=== PATIENT | male | born 1950 | race Two or more races ===

== ENCOUNTER → 2017-03-16 | Outpatient (CLI) | payer OTHER, MEDICAID ==
[2015-12-06 11:24] VITALS: BP 135/79
--- NOTE | 2017-03-16 09:06 | US ---
HISTORY: Right upper quadrant pain, nausea Study: Right upper quadrant abdominal ultrasound Comparison: None Technique: Multiple images of the right upper quadrant were obtained. Findings: The liver is grossly unremarkable in appearance. No definite sonographic evidence of focal discrete hepatic mass is appreciated. The right kidney measures 9.3 x 8.2 x 5.5 cm. An approximate 1.6 x 2.22 cm cyst is noted within the right kidney. No sonographic evidence of hydronephrosis is identified. No shadowing echogenic stones are noted within the gallbladder. The gallbladder wall is thickened me asuring 4.0 mm. The common bile duct is within normal limits in caliber measuring 5.0 mm. The pancre as was not visualized. IMPRESSION: 1. Thickened gallbladder wall without evidence of shadowing echogenic gallstones. 2. Right renal cyst. Reported By:
== END | disposition home or self-care (01) | DRG 392 ==
LOC: RAD 07:55
PROVIDERS: ATTEND Internal Medicine
DX: R10.11 Right upper quadrant pain (principal); N28.1 Cyst of kidney, acquired; K82.8 Other specified diseases of gallbladder
CPT/HCPCS: 76705

== ENCOUNTER → 2017-03-17 | Outpatient (CLI) | payer OTHER, MEDICAID ==
[2015-12-06 11:24] VITALS: BP 135/79
--- NOTE | 2017-03-17 14:25 | NM ---
HISTORY: RUQ pain, nausea. Technique: Multiple scintigraphic images of the abdomen were obtained the intravenous administration of 6.4 mCi of technetium labeled Choletec. Following distention of the gallbladder with radiotracer a bottle of Ensure was given. An estimated gallbladder ejection fraction was calculated based on this physiologic response. Findings: Homogeneous uptake of radiotracer is seen throughout the liver. The intrabiliary ductal system is o bserved normally. The common hepatic and common bile duct grossly appear unremarkable with normal b iliary-bowel transit. The gallbladder is observed to fill normally without evidence for acute rah cystitis. After the administration of ensure, however, an abnormally low gallbladder ejection fracti on of 12% (normal > 35%) is observed. Although many etiologies (certain medications, cholangitis, pa ncreatitis, sepsis, etc.) can account for a low gallbladder ejection fraction, in the outpatient set ting, the most common etiology is chronic cholecystitis. IMPRESSION: 1. Hepatobiliary imaging study demonstrates no evidence for hepatic dysfunction, acute cholecystiti s, or biliary leak/biloma formation. 2. Low gallbladder ejection fraction of 12%, most likely reflecting chronic cholecystitis, as discu ssed above. Reported By:
== END ==
LOC: RAD 10:55
PROVIDERS: ATTEND Internal Medicine
DX: R10.11 Right upper quadrant pain (principal)
CPT/HCPCS: 78227

== ENCOUNTER 2017-04-21 07:32 | Inpatient (IN) | payer OTHER, MEDICAID ==
[~2017-04-21 07:32] MED LIST: ANCEF VIAL 1 GM ONE; NS 100 ML IV 100 ML IV ONE; NS 1000 ML 1,000 ML ONE
[2017-04-21 08:06] LABS: BASOPHILS # (AUTO) 0.1 X10^3/uL (0.0-0.1); BASOPHILS % (AUTO) 1.4 % (0.2-1.0); EOSINOPHILS # (AUTO) 0.3 x10^3/uL (0.0-0.2); EOSINOPHILS % (AUTO) 3.9 % (0.9-2.9); HEMATOCRIT 43.7 % (42.0-54.0); HEMOGLOBIN 15.3 g/dL (13.5-18.0); LYMPHOCYTES # (AUTO) 1.9 X10^3/uL (1.3-2.9); LYMPHOCYTES % (AUTO) 21.6 % (21.0-51.0); MEAN CORPUSCULAR HEMOGLOBIN 28.8 pg (27.0-34.0); MEAN CORPUSCULAR HGB CONC 35.1 g/dL (33.0-35.0); MEAN CORPUSCULAR VOLUME 82.2 fL (80.0-100.0); MEAN PLATELET VOLUME 8.1 fL (7.4-11.0); MONOCYTES # (AUTO) 0.7 x10^3/uL (0.3-0.8); MONOCYTES % (AUTO) 7.9 % (0.0-13.0); NEUTROPHILS # (AUTO) 5.7 x10^3/uL (2.2-4.8); NEUTROPHILS % (AUTO) 65.2 % (42.0-75.0); PLATELET COUNT 267 X10^3/uL (150.0-450.0); RED BLOOD COUNT 5.32 X10^6/uL (4.7-6.0); RED CELL DISTRIBUTION WIDTH 12.9 % (11.6-16.5); WHITE BLOOD COUNT 8.7 X10^3/uL (3.6-10.0)
[2017-04-21] MEDS ORDERED: FENTANYL INJ 250 mcg ONE (08:11)
[2017-04-21 08:16] LABS: ALANINE AMINOTRANSFERASE 32 Units/L (12-78); ALBUMIN 3.5 g/dL (3.4-5.0); ALKALINE PHOSPHATASE 84 Units/L (46-116); ASPARTATE AMINO TRANSFERASE 31 Units/L (15-37); BLOOD UREA NITROGEN 6 mg/dL (7-18); CALCIUM 8.8 mg/dL (8.5-10.1); CARBON DIOXIDE 33.6 mmol/L (21-32); CHLORIDE 103 mmol/L (98-107); COR NA(FOR HYPERGLY) 141 mmol/L (136-145); CREATININE 0.95 mg/dL (0.70-1.30); GLUCOSE 116 mg/dL (65-99); SODIUM 141 mmol/L (136-145); TOTAL PROTEIN 7.7 g/dL (6.4-8.2); eGFR BLACK RACES > 60 (>60); eGFR NON BLACK RACES > 60 (>60)
[2017-04-21] MEDS ORDERED: XYLOCAINE-MPF 1% ONE (08:30)
[2017-04-21] MEDS ORDERED: MARCAINE 0.25% WITH EPI IJ ONE ×2 (08:31→08:32)
--- NOTE | 2017-04-21 10:24 | OR.GENERIC ---
Post-Op Note Generic - Post-Op Note Operative Report: Operative Report Date of Operation: April 21, 2017 Pre-Operative Diagnosis: Chronic cholecystitis. Post-Operative Diagnosis: Chronic cholecystitis. Procedure: Laparoscopic cholecystectomy. Surgeon: Rafael Shepherd MD. Probation Worker: Sonya Steve CRNA. Specimen: Gallbladder. Estimated blood loss: Minimal. Complications: None. Summary: The patient is a 67 year old male who presented with chronic cholecystitis. The patient was offered cholecystectomy. The risk and benefits of the procedure including difficulty with anesthesia, bleeding, infection, conversion to open procedure, bile leak, hernia formation, DVT, as well as PE were discussed with the patient. The patient understood these risks and requested the procedure. On April 21, 2017, the patient was brought to the operative theatre. A time out was performed verifying the patient and procedure. The patient received Ancef for pre-operative antibiosis. After satisfactory induction of general endotracheal anesthesia, the abdomen was prepped with Chloraprep and draped in the usual sterile fashion. The skin and subcutaneous tissue at the umbilicus was anesthetized using local anesthetic. The skin was incised sharply. A 12 mm trocar was placed though the incision and into the peritoneal cavity using the [place] technique. Carbon dioxide was infiltrated through this trocar to obtain a pneumoperitoneum of 15 mm Hg. A camera was placed through this trocar and swept in all directions. No injury was seen from entering the peritoneal cavity. A site was selected in the subxiphoid location for our 2nd trocar. The skin and fascia was anesthetized using local anesthetic. The skin was incised sharply. A 5 mm trocar was placed into the peritoneal cavity under direct visualization. In a similar manner, two additional 5 mm trocars were placed. The first was placed in the mid-clavicular line approximately 2 fingerbreadths inferior to the left costal margin and a second in the anterior axillary line approximately 2 fingerbreadths inferior to the left costal margin. The patient was placed in reverse Trendelenburg and rotated to the patients left. The gallbladder was grasped at the fundus and elevated cephalad and slightly lateral. Omental attachments were taken down using blunt dissection and electrocautery. The peritoneum on the medial and lateral aspects of the infundibulum of the gallbladder was scored using hook electrocautery. Using blunt dissection, the cystic artery and duct were isolated. The critical view of safety was obtained. Both of these structures were divided between endoclips. The gallbladder was dissected free using hook electrocautery. The gallbladder was placed in an endobag and removed through the umbilical trocar site without difficulty. The trocar and camera were placed back inside the abdomen. Our clips were noted in good position. Bleeding of the gallbladder fossa was controlled using electrocautery. At this point, the 5 mm trocars were removed under direct visualization. No bleeding was seen. The umbilical trocar was then removed and pneumoperitoneum released. The fascia at the umbilicus was closed using a 0-Vicryl placed in a figure-of- eight configuration. The skin edges at all incisions were re-approximated using inverted, interrupted 4-0 Monocryl sutures. Benzoin and Steri-strips were placed. Sterile dressings were placed. The patient was awakened and taken to the recovery room in stable condition. There were no complications. All counts were correct.
[2017-04-21] MEDS ORDERED: BENADRYL INJ 50 MG VIAL IVP PRN (10:39)
[2017-04-21] MEDS ORDERED: PHENERGAN INJ 25 MG IVP PRN (10:39)
[2017-04-21] MEDS ORDERED: REGLAN INJ 10 MG VIAL IVP PRN (10:39)
[2017-04-21] MEDS ORDERED: ZOFRAN INJ 4 MG VIAL IVP PRN ×2 (10:39→11:14)
[2017-04-21 11:01] LABS: ABG BASE EXCESS 4.1 mmol/L (-2.0-2.0)
[2017-04-21 11:03] LABS: ABG ALLEN TEST POS; ABG HCO3 33.1 mmol/L (22-26)
[2017-04-21] MEDS ORDERED: TYLENOL SUPP 650 MG PR PRN (11:04)
[2017-04-21] MEDS ORDERED: TYLENOL 325 MG TAB PO PRN (11:04)
[2017-04-21] MEDS ORDERED: DILAUDID INJ ONE (11:06)
--- NOTE | 2017-04-21 11:06 | RAD ---
HISTORY: Low oxygen saturation. Status post surgery/extubation. Study: Single-view chest, done portably Comparison: No priors Findings: Examination is very expiratory with accentuation of the transverse cardiac diameter and bronchovascul ar markings. Right lung is clear. Minimal linear atelectasis is present in the left lung base. No den se consolidation, pleural fluid or pneumothorax is seen. The trachea is midline. There is aortic unco iling. Prominence of the soft tissues in the right paratracheal region is likely on the basis of the AP portable technique with expiratory phase. Osseous structures are intact IMPRESSION: Minimal linear atelectasis present in the left lung base. No dense consolidation is seen. Reported By:
[2017-04-21] MEDS: DILAUDID INJ IVP PRN ×2 (11:07→11:12)
[2017-04-21] MEDS ORDERED: MORPHINE SULFATE INJ 2 MG IVP PRN (11:14)
[2017-04-21] MEDS ORDERED: ZOFRAN INJ 4 MG VIAL ONE ×2 (11:16→16:01)
[2017-04-21 12:07] LABS: CKMB % 1.3 % (<4); CREATINE KINASE 104 Units/L (39-308); CREATINE KINASE MB 1.3 ng/mL (0-4.0); TROPONIN I < 0.02 ng/mL (0-1.5)
[2017-04-21] MEDS: NS 1000 ML 1,000 ML IV SCH ×2 (12:37→23:34)
[2017-04-21] MEDS: MORPHINE SULFATE INJ 2 MG IVP PRN ×2 (12:55→16:46)
[2017-04-21 14:14] VITALS: BMI 37.5
[2017-04-21 14:45] LABS: FRACTIONATED INSPIRED OXYGEN 100
[2017-04-21] MEDS ORDERED: NORCURON INJ 10 MG VIAL ONE (16:01)
[2017-04-21] MEDS ORDERED: XYLOCAINE 1 % (PLAIN) ONE (16:01)
[2017-04-21] MEDS ORDERED: ULTANE GAS IN ONE (16:01)
[2017-04-21] MEDS ORDERED: NEOSTIGMINE INJ ONE (16:01)
[2017-04-21] MEDS ORDERED: DIPRIVAN VIAL ONE (16:01)
[2017-04-21] MEDS ORDERED: NARCAN INJ ONE (16:01)
[2017-04-21] MEDS ORDERED: ROBINUL ONE (16:01)
[2017-04-21] MEDS ORDERED: VERSED ONE (16:01)
[2017-04-21] MEDS ORDERED: NORMODYNE INJ 100 MG VIAL ONE (16:01)
[2017-04-21] MEDS ORDERED: QUELICIN (OR ANECTINE) ONE (16:01)
[2017-04-21] MEDS: HEPARIN SODIUM INJ 5000 UNITS SC SCH ×2 (16:46→23:32)
[2017-04-21 20:22] LABS: CKMB % 1.5 % (<4); CREATINE KINASE 98 Units/L (39-308); CREATINE KINASE MB 1.5 ng/mL (0-4.0); TROPONIN I < 0.02 ng/mL (0-1.5)
[2017-04-21] MEDS: PERCOCET TAB 5/325 MG PO PRN (21:06)
[2017-04-22] MEDS: NS 1000 ML 1,000 ML IV SCH ×2 (02:08→18:02)
[2017-04-22] MEDS: PERCOCET TAB 5/325 MG PO PRN ×3 (05:40→20:43)
[2017-04-22 06:11] LABS: BASOPHILS # (AUTO) 0.1 X10^3/uL (0.0-0.1); BASOPHILS % (AUTO) 0.7 % (0.2-1.0); EOSINOPHILS # (AUTO) 0.1 x10^3/uL (0.0-0.2); EOSINOPHILS % (AUTO) 1.3 % (0.9-2.9); LYMPHOCYTES # (AUTO) 1.2 X10^3/uL (1.3-2.9); LYMPHOCYTES % (AUTO) 10.6 % (21.0-51.0); MEAN CORPUSCULAR HEMOGLOBIN 28.6 pg (27.0-34.0); MEAN CORPUSCULAR VOLUME 84.1 fL (80.0-100.0); MEAN PLATELET VOLUME 8.6 fL (7.4-11.0); MONOCYTES # (AUTO) 0.9 x10^3/uL (0.3-0.8); MONOCYTES % (AUTO) 8.2 % (0.0-13.0); NEUTROPHILS # (AUTO) 8.7 x10^3/uL (2.2-4.8); NEUTROPHILS % (AUTO) 79.2 % (42.0-75.0); PLATELET COUNT 212 X10^3/uL (150.0-450.0); RED BLOOD COUNT 4.88 X10^6/uL (4.7-6.0); RED CELL DISTRIBUTION WIDTH 13.3 % (11.6-16.5)
[2017-04-22 06:25] LABS: ALANINE AMINOTRANSFERASE 46 Units/L (12-78); ALBUMIN 3.1 g/dL (3.4-5.0); ALKALINE PHOSPHATASE 68 Units/L (46-116); ASPARTATE AMINO TRANSFERASE 64 Units/L (15-37); BLOOD UREA NITROGEN 5 mg/dL (7-18); CALCIUM 8.3 mg/dL (8.5-10.1); CARBON DIOXIDE 31.4 mmol/L (21-32); CHLORIDE 105 mmol/L (98-107); COR NA(FOR HYPERGLY) 141 mmol/L (136-145); CREATININE 0.99 mg/dL (0.70-1.30); GLUCOSE 121 mg/dL (65-99); SODIUM 140 mmol/L (136-145); TOTAL PROTEIN 6.9 g/dL (6.4-8.2); eGFR BLACK RACES > 60 (>60); eGFR NON BLACK RACES > 60 (>60)
[2017-04-22 07:06] LABS: ABG BASE EXCESS 7.9 mmol/L (-2.0-2.0)
[2017-04-22 07:09] LABS: ABG HCO3 36.9 mmol/L (22-26)
[2017-04-22 07:10] LABS: ABG ALLEN TEST POS
[2017-04-22] MEDS: APRESOLINE INJ 20 MG VIAL IVP PRN ×2 (07:56→23:11)
[2017-04-22] MEDS: HEPARIN SODIUM INJ 5000 UNITS SC SCH ×3 (07:58→23:11)
[2017-04-22] MEDS: PROTONIX INJ 40 MG VIAL IVP SCH (07:59)
[2017-04-22] MEDS ORDERED: REFLEX: PROVENTIL NEB & PulmiCORT NEB~ NEB SCH (10:15)
[2017-04-22] MEDS: NORVASC TAB 5 MG PO SCH (10:45)
--- NOTE | 2017-04-22 10:54 | PCM.PROG ---
Progress Note - Progress Note for Day of Date: 04/22/17 - Subjective Subjective: WAS IS S/P CHOLECYSTECTOMY YESTERDAY. HIS OXYGEN SATURATIONS FELL INTO THE 70S IN PACU. HE WAS ADMITTED FOR OBSERVATION FOR HYPOXIA. HE IS ALERT AND ORIENTED, LYING IN BED ON MORNING ROUNDS. PATIENT'S FAMILY AT BEDSIDE. PATIENT IS NOTED WEARING BIPAP AT THIS TIME. LUNGS ARE NOTED CLEAR ON AUSCULTATION. HE REPORTS AGITATION WITH WEARING MASK. VITALS THIS AM ARE 99.2-95-20-95%-175/89. CBC WNL EXCEPT WBC 11.0. CMP WNL EXCEPT BUN 5, GLUCOSE 121, CALCIUM 8.3, AST 64, ALBUMIN 3.1. ABG REPORTS PH 7.3, PC02 75, P02 59, HC03 36.9. HE WILL CONTINUE ON BIPAP. WE PLAN TO ORDER A SLEEP STUDY. RESPIRATORY THERAPY WILL ARRANGE FOR THIS. WE WILL ORDER DUONEBS AND PULMICORT NEB TX AND AMLODIPINE 5MG PO DAILY. WE WILL RECHECK AM LABS AND FOLLOW UP WITH PATIENT IN THE MORNING. WILL CONTINUE TO FOLLOW PATIENT FOR POST OP CARE. - Past Medical Family Social History Past Med/Fam/Surg Hx: No changes since H&P Allergies: Allergies MS No Known Drug Allergy [No Known Drug Allergy] Allergy (Verified 01/26/13 08: 08) - Review of Systems ROS: No change since H&P - Vital Signs and I&O's Vital Signs: Temperature 98.7 F Pulse Rate [Apical] 102 Pulse Rate 88 Respiratory Rate 25 Blood Pressure [Right Arm] 166/80 Blood Pressure 179/100 O2 Sat by Pulse Oximetry 90 Intake and Output: Intake & Output 04/19/17 04/20/17 04/21/17 04/22/17 11:59 11:59 11:59 11:59 Intake Total 2473 Balance 2473 - Physical Exam Oriented: Normal Eyes: Normal Ear: Normal Nose: Normal Throat: Normal Respiratory: Normal Cardiovascular: Normal : Normal Auscultation: Bowel Sounds: Normal Palpation: Normal Tenderness: Diffuse (STATUS POST LAP PATIENCE ), Moderate Skin: Normal Musculoskeletal: Normal Psychiatric: Normal Mood Description: Calm Speech Pattern: Clear, Appropriate - Laboratory and Diagnostics Result Diagrams: 04/22/17 05:10 04/22/17 05:10 Labs: Laboratory WBC 11.0 X10^3/uL (3.6-10.0) H 04/22/17 05:10 RBC 4.88 X10^6/uL (4.7-6.0) 04/22/17 05:10 Hgb 14.0 g/dL (13.5-18.0) 04/22/17 05:10 Hct 41.0 % (42.0-54.0) L 04/22/17 05:10 MCV 84.1 fL (80.0-100.0) 04/22/17 05:10 MCH 28.6 pg (27.0-34.0) 04/22/17 05:10 MCHC 34.0 g/dL (33.0-35.0) 04/22/17 05:10 RDW 13.3 % (11.6-16.5) 04/22/17 05:10 Plt Count 212 X10^3/uL (150.0-450.0) 04/22/17 05:10 MPV 8.6 fL (7.4-11.0) 04/22/17 05:10 Neut % 79.2 % (42.0-75.0) H 04/22/17 05:10 Lymph % 10.6 % (21.0-51.0) L 04/22/17 05:10 [place] % 8.2 % (0.0-13.0) 04/22/17 05:10 Eos % 1.3 % (0.9-2.9) 04/22/17 05:10 Baso % 0.7 % (0.2-1.0) 04/22/17 05:10 Neut # 8.7 x10^3/uL (2.2-4.8) H 04/22/17 05:10 Lymph # 1.2 X10^3/uL (1.3-2.9) L 04/22/17 05:10 [place] # 0.9 x10^3/uL (0.3-0.8) H 04/22/17 05:10 Eos # 0.1 x10^3/uL (0.0-0.2) 04/22/17 05:10 Baso # 0.1 X10^3/uL (0.0-0.1) 04/22/17 05:10 Absolute Nucleated RBC 0.1 /100WBC 04/22/17 05:10 Sample Site Rrad 04/22/17 06:55 ABG pH 7.300 (7.35-7.45) L 04/22/17 06:55 ABG pCO2 75.0 mmHg (35.0-45.0) H* 04/22/17 06:55 ABG pO2 59.0 mmHg (80.0-100.0) L 04/22/17 06:55 ABG HCO3 36.9 mmol/L (22-26) H* 04/22/17 06:55 ABG O2 Saturation 87.0 % (90-100) L 04/22/17 06:55 ABG Base Excess 7.9 mmol/L (-2.0-2.0) H 04/22/17 06:55 Julio Test Pos 04/22/17 06:55 A-a Gradient 104.0 mmHg 04/22/17 06:55 FiO2 36.000 04/22/17 06:55 Blood Gas Comments Alicia abg well-mtf 04/22/17 06:55 Sodium 140 mmol/L (136-145) 04/22/17 05:10 Corrected Sodium 141 mmol/L (136-145) 04/22/17 05:10 Potassium 4.1 mmol/L (3.5-5.1) 04/22/17 05:10 Chloride 105 mmol/L (98-107) 04/22/17 05:10 Carbon Dioxide 31.4 mmol/L (21-32) 04/22/17 05:10 BUN 5 mg/dL (7-18) L 04/22/17 05:10 Creatinine 0.99 mg/dL (0.70-1.30) 04/22/17 05:10 Est GFR (MDRD) Af Amer > 60 (>60) 04/22/17 05:10 Est GFR (MDRD) Non-Af > 60 (>60) 04/22/17 05:10 Glucose 121 mg/dL (65-99) H 04/22/17 05:10 Calcium 8.3 mg/dL (8.5-10.1) L 04/22/17 05:10 Corrected Calcium 9.0 mg/dL (8.5-10.1) 04/22/17 05:10 Total Bilirubin 0.50 mg/dL (0.2-1.0) 04/22/17 05:10 AST 64 Units/L (15-37) H 04/22/17 05:10 ALT 46 Units/L (12-78) 04/22/17 05:10 Alkaline Phosphatase 68 Units/L (46-116) 04/22/17 05:10 Creatine Kinase 98 Units/L (39-308) 04/21/17 19:28 CK-MB (CK-2) 1.5 ng/mL (0-4.0) 04/21/17 19:28 CK/CKMB % Calc 1.5 % (<4) 04/21/17 19:28 Troponin I < 0.02 ng/mL (0-1.5) 04/21/17 19:28 Total Protein 6.9 g/dL (6.4-8.2) 04/22/17 05:10 Albumin 3.1 g/dL (3.4-5.0) L 04/22/17 05:10 Globulin 3.8 g/dL (2.5-4.5) 04/22/17 05:10 Albumin/Globulin Ratio 0.8 Ratio (1.1-2.1) L 04/22/17 05:10 Tissue Pathology To follow 04/21/17 10:49 - Plan (1) Hypoxia Status: Acute Plan: BIPAP, DUONEB AND PULMICORT NEB TX, CONTINUE TO MONITOR (2) Hypertension Status: Acute Qualifiers: Hypertension type: unspecified secondary hypertension Qualified Code(s): I15.9 - Secondary hypertension, unspecified Plan: AMLODIPINE 5MG BID, CONTINUE AVAPRO, CONTINUE TO MONITOR (3) Status post laparoscopic cholecystectomy Status: Acute Plan: WOUND CARE, CONTINUE MORPHINE PRN PAIN, CONTINUE PERCOCET PRN PAIN, CONTINUE TO MONITOR FOR S/SX INFECTION
[2017-04-22] MEDS: DUONEB 0.5 MG/3 MG NEB SCH ×4 (11:00→21:25)
[2017-04-22] MEDS: PULMICORT NEB TX 0.5 MG NEB SCH ×2 (11:00→21:25)
[2017-04-22] MEDS: PEPCID TAB 20 MG PO SCH (12:32)
[2017-04-22] MEDS: IRBESARTAN PO SCH ×2 (12:33→20:44)
[2017-04-22] MEDS: FLOMAX PO SCH (20:43)
[2017-04-22] MEDS: MORPHINE SULFATE INJ 2 MG IVP PRN (22:03)
[2017-04-23] MEDS ORDERED: NORCURON INJ 10 MG VIAL ONE (02:06)
[2017-04-23 02:10] LABS: BASOPHILS # (AUTO) 0.1 X10^3/uL (0.0-0.1); EOSINOPHILS # (AUTO) 0.2 x10^3/uL (0.0-0.2); HEMOGLOBIN 14.5 g/dL (13.5-18.0)
[2017-04-23 02:19] LABS: BASOPHILS % (AUTO) 0.7 % (0.2-1.0); HEMATOCRIT 43.5 % (42.0-54.0); LYMPHOCYTES % (AUTO) 11.2 % (21.0-51.0); MEAN CORPUSCULAR HEMOGLOBIN 28.6 pg (27.0-34.0); MEAN CORPUSCULAR HGB CONC 33.4 g/dL (33.0-35.0); MEAN CORPUSCULAR VOLUME 85.5 fL (80.0-100.0); MEAN PLATELET VOLUME 8.4 fL (7.4-11.0); MONOCYTES # (AUTO) 1.3 x10^3/uL (0.3-0.8); MONOCYTES % (AUTO) 6.9 % (0.0-13.0); NEUTROPHILS # (AUTO) 14.4 x10^3/uL (2.2-4.8); NEUTROPHILS % (AUTO) 80.2 % (42.0-75.0); PLATELET COUNT 257 X10^3/uL (150.0-450.0); RED BLOOD COUNT 5.09 X10^6/uL (4.7-6.0); RED CELL DISTRIBUTION WIDTH 13.5 % (11.6-16.5)
[2017-04-23 02:20] LABS: ALANINE AMINOTRANSFERASE 48 Units/L (12-78); ALBUMIN 3.4 g/dL (3.4-5.0); ALKALINE PHOSPHATASE 76 Units/L (46-116); ASPARTATE AMINO TRANSFERASE 51 Units/L (15-37); BLOOD UREA NITROGEN 4 mg/dL (7-18); CALCIUM 8.4 mg/dL (8.5-10.1); CARBON DIOXIDE 39.3 mmol/L (21-32); CHLORIDE 103 mmol/L (98-107); COR NA(FOR HYPERGLY) 142 mmol/L (136-145); GLUCOSE 202 mg/dL (65-99); SODIUM 140 mmol/L (136-145); TOTAL PROTEIN 7.9 g/dL (6.4-8.2); eGFR BLACK RACES > 60 (>60); eGFR NON BLACK RACES > 60 (>60)
[2017-04-23 02:27] LABS: CREATINE KINASE 103 Units/L (39-308); CREATINE KINASE MB < 1.0 ng/mL (0-4.0); TROPONIN I < 0.02 ng/mL (0-1.5)
--- NOTE | 2017-04-23 02:31 | RAD ---
AP Chest Indication:hypoxia, unresponsive Comparison:04/21/2017 Findings: The trachea is midline. The heart size is mildly enlarged, unchanged. There is suboptimal inspiratio n with central vascular crowding and bibasilar subsegmental atelectasis. No dense airspace consolidat ion, large effusion or pneumothorax. No acute osseous abnormality. Impression: Limited evaluation secondary to suboptimal inspiration demonstrates stable mild cardiomeg juan with subsegmental atelectasis and pulmonary vascular crowding, no acute airspace disease, pleural effusion or pneumothorax. Reported By:
[2017-04-23] MEDS ORDERED: SALINE 0.9% 3 ML NEB TX ONE (02:32)
[2017-04-23] MEDS ORDERED: NORCURON INJ 10 MG VIAL IVP ONE (02:32)
--- NOTE | 2017-04-23 02:36 | RAD ---
AP Chest Indication: ET tube placement Comparison: 04/23/2017 at 2:00 a.m. Findings: Upper thorax is excluded from this examination. Endotracheal tube is noted with its tip at the level of the micheal, recommend withdrawal by an approximate least 3 cm with repeat radiographic evaluation for confirmation of placement. No new airspace opacity, pleural effusion or pneumothorax. Impression: See above. The patient's ICU nurse Kalli was informed of endotracheal tube positioning by Dr. Gentile at approx imate 2:35 a.m. Reported By:
[2017-04-23 02:48] LABS: BILIRUBIN,URINE NEGATIVE (NEGATIVE); BLOOD/HEMOGLOBIN,URINE 1+ (NEGATIVE); GLUCOSE, URINE 2+ (NEGATIVE); KETONES,URINE NEGATIVE (NEGATIVE); LEUKOCYTE ESTERASE ,URINE NEGATIVE (NEGATIVE); NITRITES,URINE NEGATIVE (NEGATIVE); PROTEIN,URINE 2+ (NEGATIVE); UROBILINOGEN,URINE NORMAL (NORMAL)
--- NOTE | 2017-04-23 02:52 | RAD ---
AP Chest Indication: Endotracheal tube placement Comparison: radiograph performed earlier on same day Findings: The endotracheal tube now projects approximately 4 cm above the micheal in satisfactory position. No n ew airspace disease pleural effusion or evidence of pneumothorax. IMPRESSION: 1. Satisfactory position of endotracheal tube without pneumothorax or new airspace disease. Reported By:
[2017-04-23 02:58] LABS: AMORPHOUS SEDIMENT,UR 1+ /HPF (NEGATIVE); APPEARANCE,URINE CLEAR (CLEAR); BACTERIA,URINE NEGATIVE /HPF (NEGATIVE); COLOR,URINE YELLOW (YELLOW); RBC,URINE 0-3 /HPF (NEGATIVE); SQUAMOUS EPITHELIAL CELL,UR RARE /HPF (NEGATIVE)
[2017-04-23] MEDS ORDERED: NS 100 ML IV 100 ML IV ONE (03:13)
[2017-04-23] MEDS ORDERED: VERSED ONE (03:14)
[2017-04-23 03:16] LABS: ABG ALLEN TEST POS
[2017-04-23 03:17] LABS: ABG BASE EXCESS 5.8 mmol/L (-2.0-2.0)
[2017-04-23] MEDS: VERSED 100 MG in NS 100 ML IV 80 ML IV PRN ×2 (03:18→13:14)
[2017-04-23 03:19] LABS: ABG ALLEN TEST POS; ABG HCO3 34.4 mmol/L (22-26)
[2017-04-23 04:27] LABS: ABG BASE EXCESS 9.2 mmol/L (-2.0-2.0)
[2017-04-23 04:28] LABS: ABG ALLEN TEST POS; ABG HCO3 32.6 mmol/L (22-26)
[2017-04-23] MEDS: NS 1000 ML 1,000 ML IV SCH ×2 (06:03→21:47)
[2017-04-23] MEDS: APRESOLINE INJ 20 MG VIAL IVP PRN (06:25)
[2017-04-23] MEDS ORDERED: PEPCID 20 MG IV PREMIX* 20 MG/50 ML BAG IV ONE (08:00)
[2017-04-23] MEDS: MORPHINE SULFATE INJ 2 MG IVP PRN ×2 (08:12→21:28)
[2017-04-23] MEDS: HEPARIN SODIUM INJ 5000 UNITS SC SCH ×3 (08:12→23:16)
[2017-04-23] MEDS: PROTONIX INJ 40 MG VIAL IVP SCH (08:14)
[2017-04-23] MEDS: PEPCID 20 MG IV PREMIX* 20 MG/50 ML BAG IV SCH ×2 (08:15→21:17)
[2017-04-23] MEDS: PULMICORT NEB TX 0.5 MG NEB SCH ×2 (08:19→21:55)
[2017-04-23] MEDS: DUONEB 0.5 MG/3 MG NEB SCH ×4 (08:19→21:55)
[2017-04-23] MEDS ORDERED: NS 1000 ML 1,000 ML IV PRN (09:38)
[2017-04-23] MEDS: LEVAQUIN PREMIX IV 750 MG 750 MG/150 ML BAG IV SCH (09:40)
[2017-04-23] MEDS ORDERED: NS 100 ML IV + SPIKE MINIBAG* 100 ML IV ONE ×3 (09:59→21:02)
[2017-04-23] MEDS: TYLENOL SUPP 650 MG PR PRN (10:07)
[2017-04-23] MEDS: ZOSYN VIAL 4.5 GM IV SCH ×3 (10:08→21:17)
[2017-04-23] MEDS: IRBESARTAN PO SCH ×2 (10:08→21:55)
[2017-04-23] MEDS: NORVASC TAB 5 MG PO SCH (10:09)
[2017-04-23] MEDS: PEPCID TAB 20 MG PO SCH (18:40)
--- NOTE | 2017-04-23 21:29 | PCM.PROG ---
Progress Note - Progress Note for Day of Date: 04/23/17 - Subjective Subjective: is a 67 year old male who is status post laproscopic cholecystectomy. During the night, nursing staff noted patients oxygen saturation decreased into the 70s. Patient was stimulated and oxygen saturation increased to the 80s. He remained on the Bi-Pap following that incident. After a brief period of time, patient desated again. This time into the 50s. Patient was noted to be diaphoretic and unresponsive. Patient given Vecuronium 10mg IV x1 and intubated and placed on mechanical vent by . Patients oxygen saturation increased to the 90s after a period of adequate ventilation. Patient started on Versed drip at 5 CC/HR for sedation. ABG obtained at 0152 reported FiO2 100%, pH 7.060, pCO2 115.0, pO2 78.0, HCO3 Not reportable, O2 sat Not reportable, Base Excess Not reportable. ABG obtained @ 0251 reported FiO2 100%, pH 7.300, pCO2 70.0, pO2 132.0, HCO3 34.4, Base Excess 5.8; @0414 FiO2 80%, pH 7.530, pO2 64.0, HCO3 32.6, Base Excess 9.2. Patient was catheterized and urinalysis obtained. Urinalysis reported pH 5.0, Protein 2+ , Glucose 2+, Occult Blood 1+, RBC 0-3, WBC 0-3, Sediment 1+. Sputum Culture is Pending. Sputum Gram Stain reported Gram Neg Cocci Moderate, Gram Pos Cocci Many , Gram Neg Rods Few, WBC Few. First Chest X-Ray taken at 0143 reported Limited evaluation secondary to suboptimal inspiration demonstrates stable mild cardiomegaly with sub-segmental atelectasis and pulmonary vascular crowding, no acute airspace disease, pleural effusion or pneumothorax. Second chest xray taken at 0216 reported Endotracheal tube is noted with its tip at the level of the micheal, recommended withdrawal by an approximate least 3cm with repeat x- ray. Third chest xray taken at 0239 reported Satisfactory position of endotracheal tube without pneumothorax or new airspace disease. On morning rounds, patient remains on mechanical vent. He is currently sedated on a versed drip. Respiratory therapy in room to suction patient. Family is at bedside. Vitals this morning are 98.1-848-75-100%-177/94. Abnormal labs include WBC 18.0 , Carbon Dioxide 39.3, BUN 4, Glucose 202, Calcium 8.4, AST 51, A/G Ratio 0.8. EKG reports sinus tachycardia and left atrial enlargement with a rate of 121. We will start patient on Levaquin 750mg iv daily and Zosyn 4.5 gm iv Q8H. We plan to monitor ABG and chest xray. We will recheck am labs and continue to monitor patient. - Past Medical Family Social History Past Med/Fam/Surg Hx: No changes since H&P Allergies: Allergies No Known Drug Allergies Allergy (Verified 04/22/17 11:08) - Review of Systems ROS: No change since H&P - Vital Signs and I&O's Vital Signs: Temperature 99.9 F Pulse Rate [Apical] 115 Pulse Rate 117 Respiratory Rate 15 Blood Pressure [Right Arm] 166/91 Blood Pressure 179/100 O2 Sat by Pulse Oximetry 93 Intake and Output: Intake & Output 04/21/17 04/22/17 04/23/17 04/24/17 11:59 11:59 11:59 11:59 Intake Total 2473 4278 1031 Output Total 1050 700 Balance 2473 3228 331 - Physical Exam Oriented: Other (sedated ) Eyes: Normal Ear: Normal Nose: Normal Throat: Other (patient is intubated ) Respiratory: Normal Cardiovascular: Tachycardia : Normal Auscultation: Bowel Sounds: Normal Palpation: Normal Tenderness: Diffuse (STATUS POST LAP PATIENCE ) Skin: Normal Musculoskeletal: Normal Psychiatric: Normal, Other (patient is sedated) Mood Description: Calm - Laboratory and Diagnostics Result Diagrams: 04/23/17 01:55 04/23/17 01:55 Labs: 04/23/17 02:33 Sputum - Endotracheal Wash - Final Laboratory WBC 18.0 X10^3/uL (3.6-10.0) H 04/23/17 01:55 RBC 5.09 X10^6/uL (4.7-6.0) 04/23/17 01:55 Hgb 14.5 g/dL (13.5-18.0) 04/23/17 01:55 Hct 43.5 % (42.0-54.0) 04/23/17 01:55 MCV 85.5 fL (80.0-100.0) 04/23/17 01:55 MCH 28.6 pg (27.0-34.0) 04/23/17 01:55 MCHC 33.4 g/dL (33.0-35.0) 04/23/17 01:55 RDW 13.5 % (11.6-16.5) 04/23/17 01:55 Plt Count 257 X10^3/uL (150.0-450.0) 04/23/17 01:55 MPV 8.4 fL (7.4-11.0) 04/23/17 01:55 Neut % 80.2 % (42.0-75.0) H 04/23/17 01:55 Lymph % 11.2 % (21.0-51.0) L 04/23/17 01:55 [place] % 6.9 % (0.0-13.0) 04/23/17 01:55 Eos % 1.0 % (0.9-2.9) 04/23/17 01:55 Baso % 0.7 % (0.2-1.0) 04/23/17 01:55 Neut # 14.4 x10^3/uL (2.2-4.8) H 04/23/17 01:55 Lymph # 2.0 X10^3/uL (1.3-2.9) 04/23/17 01:55 [place] # 1.3 x10^3/uL (0.3-0.8) H 04/23/17 01:55 Eos # 0.2 x10^3/uL (0.0-0.2) 04/23/17 01:55 Baso # 0.1 X10^3/uL (0.0-0.1) 04/23/17 01:55 Absolute Nucleated RBC 0.1 /100WBC 04/23/17 01:55 Sample Site R rad 04/23/17 04:14 ABG pH 7.530 (7.35-7.45) H 04/23/17 04:14 ABG pCO2 39.0 mmHg (35.0-45.0) 04/23/17 04:14 ABG pO2 64.0 mmHg (80.0-100.0) L 04/23/17 04:14 ABG HCO3 32.6 mmol/L (22-26) H* 04/23/17 04:14 ABG O2 Saturation 94.0 % (90-100) 04/23/17 04:14 ABG Base Excess 9.2 mmol/L (-2.0-2.0) H 04/23/17 04:14 Julio Test Pos 04/23/17 04:14 A-a Gradient 458.0 mmHg 04/23/17 04:14 FiO2 80.000 04/23/17 04:14 Blood Gas Comments Alicia well, afh 04/23/17 04:14 Sodium 140 mmol/L (136-145) 04/23/17 01:55 Corrected Sodium 142 mmol/L (136-145) 04/23/17 01:55 Potassium 4.1 mmol/L (3.5-5.1) 04/23/17 01:55 Chloride 103 mmol/L (98-107) 04/23/17 01:55 Carbon Dioxide 39.3 mmol/L (21-32) H 04/23/17 01:55 BUN 4 mg/dL (7-18) L 04/23/17 01:55 Creatinine 0.90 mg/dL (0.70-1.30) 04/23/17 01:55 Est GFR (MDRD) Af Amer > 60 (>60) 04/23/17 01:55 Est GFR (MDRD) Non-Af > 60 (>60) 04/23/17 01:55 Glucose 202 mg/dL (65-99) H 04/23/17 01:55 Calcium 8.4 mg/dL (8.5-10.1) L 04/23/17 01:55 Corrected Calcium TNP 04/23/17 01:55 Total Bilirubin 0.90 mg/dL (0.2-1.0) 04/23/17 01:55 AST 51 Units/L (15-37) H 04/23/17 01:55 ALT 48 Units/L (12-78) 04/23/17 01:55 Alkaline Phosphatase 76 Units/L (46-116) 04/23/17 01:55 Creatine Kinase 103 Units/L (39-308) 04/23/17 01:55 CK-MB (CK-2) < 1.0 ng/mL (0-4.0) 04/23/17 01:55 CK/CKMB % Calc 1.0 % (<4) 04/23/17 01:55 Troponin I < 0.02 ng/mL (0-1.5) 04/23/17 01:55 Total Protein 7.9 g/dL (6.4-8.2) 04/23/17 01:55 Albumin 3.4 g/dL (3.4-5.0) 04/23/17 01:55 Globulin 4.5 g/dL (2.5-4.5) 04/23/17 01:55 Albumin/Globulin Ratio 0.8 Ratio (1.1-2.1) L 04/23/17 01:55 Specimen Type Catherized urine 04/23/17 02:21 Urine Color Yellow (YELLOW) 04/23/17 02:21 Urine Appearance Clear (CLEAR) 04/23/17 02:21 Urine pH 5.0 (5.0 - 8.0) 04/23/17 02:21 Ur Specific [place] 1.020 (1.000-1.030) 04/23/17 02:21 Urine Protein 2+ (NEGATIVE) 04/23/17 02:21 Urine Glucose (UA) 2+ (NEGATIVE) 04/23/17 02:21 Urine Ketones Negative (NEGATIVE) 04/23/17 02:21 Urine Occult Blood 1+ (NEGATIVE) 04/23/17 02:21 Urine Nitrite Negative (NEGATIVE) 04/23/17 02:21 Urine Bilirubin Negative (NEGATIVE) 04/23/17 02:21 Urine Urobilinogen Normal (NORMAL) 04/23/17 02:21 Ur Leukocyte Esterase Negative (NEGATIVE) 04/23/17 02:21 Urine RBC 0-3 /HPF (NEGATIVE) 04/23/17 02:21 Urine WBC 0-3 /HPF (NEGATIVE) 04/23/17 02:21 Ur Squamous Epith Cells Rare /HPF (NEGATIVE) 04/23/17 02:21 Amorphous Sediment 1+ /HPF (NEGATIVE) 04/23/17 02:21 Urine Bacteria Negative /HPF (NEGATIVE) 04/23/17 02:21 Ur Culture Indicated? No/not indicated 04/23/17 02:21 Tissue Pathology To follow 04/21/17 10:49 - Plan (1) Hypoxia Status: Acute Plan: MECHANICAL VENTILATION, DUONEB AND PULMICORT NEB TX, CONTINUE TO MONITOR (2) Hypertension Status: Acute Qualifiers: Hypertension type: unspecified secondary hypertension Qualified Code(s): I15.9 - Secondary hypertension, unspecified Plan: AMLODIPINE 5MG BID, CONTINUE AVAPRO, CONTINUE TO MONITOR (3) Status post laparoscopic cholecystectomy Status: Acute Plan: WOUND CARE, CONTINUE MORPHINE PRN PAIN, CONTINUE PERCOCET PRN PAIN, CONTINUE TO MONITOR FOR S/SX INFECTION
[2017-04-23] MEDS: FLOMAX PO SCH (21:55)
[2017-04-24] MEDS: VERSED 100 MG in NS 100 ML IV 80 ML IV PRN ×2 (01:58→13:34)
[2017-04-24] MEDS ORDERED: NS 100 ML IV + SPIKE MINIBAG* 100 ML IV ONE ×3 (06:13→21:00)
[2017-04-24 06:20] LABS: ALANINE AMINOTRANSFERASE 27 Units/L (12-78); ALBUMIN 2.3 g/dL (3.4-5.0); ALKALINE PHOSPHATASE 51 Units/L (46-116); ASPARTATE AMINO TRANSFERASE 26 Units/L (15-37); BLOOD UREA NITROGEN 9 mg/dL (7-18); CALCIUM 8.3 mg/dL (8.5-10.1); CARBON DIOXIDE 29.7 mmol/L (21-32); CHLORIDE 107 mmol/L (98-107); COR CA(FOR HYPOALB) 9.7 mg/dL (8.5-10.1); COR NA(FOR HYPERGLY) 143 mmol/L (136-145); CREATININE 1.18 mg/dL (0.70-1.30); GLUCOSE 123 mg/dL (65-99); SODIUM 142 mmol/L (136-145); TOTAL PROTEIN 6.2 g/dL (6.4-8.2); eGFR BLACK RACES > 60 (>60); eGFR NON BLACK RACES > 60 (>60)
[2017-04-24] MEDS: ZOSYN VIAL 4.5 GM IV SCH ×3 (06:22→21:09)
[2017-04-24 06:24] LABS: ABG BASE EXCESS 8.2 mmol/L (-2.0-2.0)
[2017-04-24 06:25] LABS: ABG HCO3 31.9 mmol/L (22-26)
[2017-04-24 06:26] LABS: ABG ALLEN TEST POS; FRACTIONATED INSPIRED OXYGEN 50
[2017-04-24 06:27] LABS: BASOPHILS # (AUTO) 0.1 X10^3/uL (0.0-0.1); BASOPHILS % (AUTO) 0.6 % (0.2-1.0); EOSINOPHILS # (AUTO) 0.1 x10^3/uL (0.0-0.2); EOSINOPHILS % (AUTO) 0.6 % (0.9-2.9); HEMOGLOBIN 12.9 g/dL (13.5-18.0); LYMPHOCYTES # (AUTO) 1.2 X10^3/uL (1.3-2.9); LYMPHOCYTES % (AUTO) 10.4 % (21.0-51.0); MEAN CORPUSCULAR HEMOGLOBIN 28.6 pg (27.0-34.0); MEAN CORPUSCULAR VOLUME 84.1 fL (80.0-100.0); MEAN PLATELET VOLUME 8.9 fL (7.4-11.0); MONOCYTES # (AUTO) 1.1 x10^3/uL (0.3-0.8); MONOCYTES % (AUTO) 9.9 % (0.0-13.0); NEUTROPHILS # (AUTO) 8.7 x10^3/uL (2.2-4.8); NEUTROPHILS % (AUTO) 78.5 % (42.0-75.0); PLATELET COUNT 201 X10^3/uL (150.0-450.0); RED BLOOD COUNT 4.52 X10^6/uL (4.7-6.0); RED CELL DISTRIBUTION WIDTH 13.6 % (11.6-16.5); WHITE BLOOD COUNT 11.1 X10^3/uL (3.6-10.0)
--- NOTE | 2017-04-24 07:50 | RAD ---
Chest, one view Indication: Ventilator Comparison: April 23, 2017 Findings: Endotracheal tube appears well positioned, terminating above the micheal. Lungs are hypoexpa nded but otherwise clear. No significant effusion or pneumothorax is identified. Heart size is normal for technique. Impression: Stable endotracheal tube without acute cardiopulmonary process. Reported By:
[2017-04-24] MEDS: DUONEB 0.5 MG/3 MG NEB SCH ×4 (08:43→21:59)
[2017-04-24] MEDS: PULMICORT NEB TX 0.5 MG NEB SCH ×2 (08:43→21:59)
[2017-04-24] MEDS: PROTONIX INJ 40 MG VIAL IVP SCH (08:49)
[2017-04-24] MEDS: LEVAQUIN PREMIX IV 750 MG 750 MG/150 ML BAG IV SCH (08:50)
[2017-04-24] MEDS: NS 1000 ML 1,000 ML IV SCH ×2 (08:50→09:36)
[2017-04-24] MEDS: HEPARIN SODIUM INJ 5000 UNITS SC SCH ×2 (08:50→15:48)
[2017-04-24] MEDS: PEPCID 20 MG IV PREMIX* 20 MG/50 ML BAG IV SCH ×2 (08:50→21:08)
[2017-04-24] MEDS: NORVASC TAB 5 MG PO SCH (09:00)
[2017-04-24] MEDS: IRBESARTAN PO SCH ×2 (09:00→20:17)
[2017-04-24] MEDS: LACRI-LUBE S.O.P. AFFEYE SCH ×2 (11:09→21:08)
[2017-04-24] MEDS: MORPHINE SULFATE INJ 2 MG IVP PRN ×2 (14:03→21:09)
[2017-04-24] MEDS: APRESOLINE INJ 20 MG VIAL IVP PRN (19:55)
[2017-04-24] MEDS: FLOMAX PO SCH (20:16)
--- NOTE | 2017-04-24 22:27 | CT ---
HISTORY: Hypoxia Study: CT brain without contrast Comparison: None Technique: Multiple axial images of the brain were obtained from the skull base to the vertex without administra tion of IV contrast. Automated exposure control (AEC) was utilized to adjust the MA and/or kV accordi ng to patient size. Findings: There is no acute intracranial hemorrhage. There are hypodensities within the subcortical, periventr icular, and deep white matter that are nonspecific but are compatible with mild chronic microangiopat hic ischemic white matter disease. No mass or mass effect. No abnormal extra-axial fluid collecti on. The ventricles are normal in size, shape and position. Basilar cisterns patent. Zuniga matter -white m atter interface is distinct. There is patchy opacification of the ethmoid air cells however this is a nonspecific finding in an in tubated patient. There is no acute osseous abnormality. IMPRESSION: 1. No acute intracranial process can be identified. Chronic appearing white matter changes are noted as discussed above. If there is clinical concern for acute ischemia, or hypoxic ischemic encephalopa thy, further evaluation with MRI of the brain would be recommended. Reported By:
[2017-04-25] MEDS: HEPARIN SODIUM INJ 5000 UNITS SC SCH ×3 (00:26→16:30)
[2017-04-25] MEDS: NS 1000 ML 1,000 ML IV SCH ×2 (00:28→14:12)
[2017-04-25] MEDS: MORPHINE SULFATE INJ 2 MG IVP PRN ×3 (01:25→10:57)
[2017-04-25] MEDS ORDERED: NS 100 ML IV + SPIKE MINIBAG* 100 ML IV ONE ×3 (05:17→21:08)
[2017-04-25] MEDS: ZOSYN VIAL 4.5 GM IV SCH ×3 (05:38→21:23)
[2017-04-25 06:10] LABS: ALANINE AMINOTRANSFERASE 24 Units/L (12-78); ALBUMIN 2.3 g/dL (3.4-5.0); ALKALINE PHOSPHATASE 50 Units/L (46-116); ASPARTATE AMINO TRANSFERASE 22 Units/L (15-37); BLOOD UREA NITROGEN 9 mg/dL (7-18); CALCIUM 8.5 mg/dL (8.5-10.1); CARBON DIOXIDE 29.5 mmol/L (21-32); CHLORIDE 107 mmol/L (98-107); COR CA(FOR HYPOALB) 9.9 mg/dL (8.5-10.1); CREATININE 0.96 mg/dL (0.70-1.30); GLUCOSE 107 mg/dL (65-99); SODIUM 143 mmol/L (136-145); TOTAL PROTEIN 6.5 g/dL (6.4-8.2); eGFR BLACK RACES > 60 (>60); eGFR NON BLACK RACES > 60 (>60)
[2017-04-25 06:16] LABS: ABG ALLEN TEST POS; ABG HCO3 30.2 mmol/L (22-26)
[2017-04-25 06:18] LABS: BASOPHILS # (AUTO) 0.1 X10^3/uL (0.0-0.1); BASOPHILS % (AUTO) 0.7 % (0.2-1.0); EOSINOPHILS # (AUTO) 0.4 x10^3/uL (0.0-0.2); EOSINOPHILS % (AUTO) 3.4 % (0.9-2.9); HEMATOCRIT 38.1 % (42.0-54.0); HEMOGLOBIN 13.1 g/dL (13.5-18.0); LYMPHOCYTES # (AUTO) 1.2 X10^3/uL (1.3-2.9); LYMPHOCYTES % (AUTO) 10.2 % (21.0-51.0); MEAN CORPUSCULAR HEMOGLOBIN 28.8 pg (27.0-34.0); MEAN CORPUSCULAR HGB CONC 34.3 g/dL (33.0-35.0); MEAN PLATELET VOLUME 9.1 fL (7.4-11.0); MONOCYTES % (AUTO) 8.8 % (0.0-13.0); NEUTROPHILS # (AUTO) 8.7 x10^3/uL (2.2-4.8); NEUTROPHILS % (AUTO) 76.9 % (42.0-75.0); PLATELET COUNT 204 X10^3/uL (150.0-450.0); RED BLOOD COUNT 4.54 X10^6/uL (4.7-6.0); RED CELL DISTRIBUTION WIDTH 13.5 % (11.6-16.5); WHITE BLOOD COUNT 11.3 X10^3/uL (3.6-10.0)
--- NOTE | 2017-04-25 07:07 | RAD ---
History: Dyspnea and respiratory distress. Exam: Single-view chest. Comparison: April 24, 2017. Findings: There is a stable endotracheal tube which terminates at the aortic knob. The trachea is midline. Cardiomediastinal silhouette is enlarged, unchanged from prior. Hazy ground-g lass changes throughout the right lung field are new which could reflect reactive changes or developi ng pneumonia. Interval followup is recommended peak left lung is clear. No pneumothorax. No other sol nges are appreciated. The bones are intact. Impression: Unchanged and well-positioned endotracheal tube. Hazy ground-glass changes throughout the right lung field now seen, as above, which could reflect tariq ctive changes or developing pneumonia. Followup is recommended. Reported By:
[2017-04-25] MEDS: LACRI-LUBE S.O.P. AFFEYE SCH ×3 (08:33→21:23)
[2017-04-25] MEDS: APRESOLINE INJ 20 MG VIAL IVP PRN ×2 (08:34→14:11)
[2017-04-25] MEDS: PEPCID 20 MG IV PREMIX* 20 MG/50 ML BAG IV SCH ×2 (08:34→21:18)
[2017-04-25] MEDS: PROTONIX INJ 40 MG VIAL IVP SCH (08:34)
[2017-04-25] MEDS: LEVAQUIN PREMIX IV 750 MG 750 MG/150 ML BAG IV SCH (08:35)
[2017-04-25] MEDS ORDERED: DULCOLAX SUPPOSITORY 10 MG RECTAL ONE ×2 (09:00→12:00)
[2017-04-25] MEDS: NORVASC TAB 5 MG PO SCH (09:03)
[2017-04-25] MEDS: IRBESARTAN PO SCH ×2 (09:03→21:22)
[2017-04-25] MEDS: PULMICORT NEB TX 0.5 MG NEB SCH ×2 (09:17→21:01)
[2017-04-25] MEDS: DUONEB 0.5 MG/3 MG NEB SCH ×5 (09:17→21:01)
[2017-04-25 11:21] LABS: ABG BASE EXCESS 1.5 mmol/L (-2.0-2.0); ABG HCO3 26.6 mmol/L (22-26)
[2017-04-25 11:22] LABS: ABG ALLEN TEST POS
[2017-04-25] MEDS ORDERED: BUTT CREAM (COMPOUND) TOP PRN (14:00)
[2017-04-25] MEDS ORDERED: DILAUDID INJ IVP STA (14:55)
[2017-04-25] MEDS ORDERED: APRESOLINE INJ 20 MG VIAL IVP ONE (14:56)
[2017-04-25] MEDS ORDERED: ATIVAN INJ 2 MG VIAL IVP ONE (15:00)
--- NOTE | 2017-04-25 15:30 | CT ---
HISTORY: Hypoxia. Study: CT abdomen and pelvis without contrast. Dose reduction techniques including Automated Exposure Control (AEC) and adjustment of mA and kV were utilized. Comparison: None. Technique: Multiple axial images of the abdomen and pelvis were obtained from the lung bases to the p ubic symphysis without the administration of IV contrast. Findings: There are bibasilar consolidations with small bilateral pleural effusions. There are bullock ry artery calcifications. The gallbladder is surgically absent. The liver, pancreas, spleen and adren al glands are unremarkable their noncontrast CT appearance. There is a 17 mm right renal cyst in the midpole. There is an exophytic 19 mm left renal cyst. There is no hydronephrosis or nephrolithiasis. There are no calcified stones along the course of either ureter or within the lumen of the urinary bl adder which is partially decompressed by a Gray catheter. Optimal evaluation of the ascending colon is limited secondary to patient motion. There is sigmoid diverticulosis with associated wall thickeni ng and minimal pericolonic stranding. There is no extraluminal gas or organized fluid collection. No intraperitoneal free air or free fluid is evident. There is no significant mesenteric stranding or ly mphadenopathy. There is atherosclerotic disease of the non-aneurysmal abdominal aorta. There is grade 1 anterolisthesis of L4 on L5 thought to be on a degenerative basis. Degenerative disc disease of th e lower lumbar spine is noted. IMPRESSION: 1. Bibasilar consolidations and small bilateral pleural effusions possibly reflecting aspiration/pne umonia. 2. Sigmoid diverticulosis. Mild acute and uncomplicated diverticulitis is not excluded. Reported By:
[2017-04-25] MEDS: TYLENOL SUPP 650 MG PR PRN ×2 (15:48→21:18)
[2017-04-25] MEDS ORDERED: CHRONULAC PO STA (17:18)
[2017-04-25] MEDS ORDERED: CATAPRES TAB 0.1 MG PO PRN (17:30)
[2017-04-25] MEDS ORDERED: NS 1000 ML 1,000 ML IV SCH (18:00)
[2017-04-25] MEDS: DILAUDID INJ IVP PRN (21:19)
[2017-04-25] MEDS: FLOMAX PO SCH (21:23)
[2017-04-26] MEDS ORDERED: CHRONULAC PO SCH
[2017-04-26] MEDS: HEPARIN SODIUM INJ 5000 UNITS SC SCH (00:38)
[2017-04-26] MEDS: DUONEB 0.5 MG/3 MG NEB SCH ×2 (00:41→05:16)
[2017-04-26] MEDS: DILAUDID INJ IVP PRN (02:57)
[2017-04-26 04:55] LABS: ABG BASE EXCESS 4.6 mmol/L (-2.0-2.0); ABG HCO3 29.8 mmol/L (22-26)
[2017-04-26 05:10] LABS: BASOPHILS # (AUTO) 0.1 X10^3/uL (0.0-0.1); BASOPHILS % (AUTO) 0.8 % (0.2-1.0); EOSINOPHILS # (AUTO) 0.3 x10^3/uL (0.0-0.2); EOSINOPHILS % (AUTO) 2.9 % (0.9-2.9); HEMATOCRIT 36.3 % (42.0-54.0); HEMOGLOBIN 12.3 g/dL (13.5-18.0); LYMPHOCYTES # (AUTO) 0.9 X10^3/uL (1.3-2.9); MEAN CORPUSCULAR HEMOGLOBIN 28.5 pg (27.0-34.0); MEAN CORPUSCULAR HGB CONC 33.9 g/dL (33.0-35.0); MEAN CORPUSCULAR VOLUME 84.1 fL (80.0-100.0); MEAN PLATELET VOLUME 9.4 fL (7.4-11.0); MONOCYTES % (AUTO) 9.6 % (0.0-13.0); NEUTROPHILS % (AUTO) 77.7 % (42.0-75.0); PLATELET COUNT 229 X10^3/uL (150.0-450.0); RED BLOOD COUNT 4.32 X10^6/uL (4.7-6.0); RED CELL DISTRIBUTION WIDTH 13.6 % (11.6-16.5); WHITE BLOOD COUNT 10.3 X10^3/uL (3.6-10.0)
[2017-04-26 05:18] LABS: ALANINE AMINOTRANSFERASE 20 Units/L (12-78); ALBUMIN 2.2 g/dL (3.4-5.0); ALKALINE PHOSPHATASE 47 Units/L (46-116); ASPARTATE AMINO TRANSFERASE 18 Units/L (15-37); BLOOD UREA NITROGEN 11 mg/dL (7-18); CALCIUM 8.7 mg/dL (8.5-10.1); CARBON DIOXIDE 27.2 mmol/L (21-32); CHLORIDE 107 mmol/L (98-107); COR CA(FOR HYPOALB) 10.1 mg/dL (8.5-10.1); CREATININE 1.07 mg/dL (0.70-1.30); GLUCOSE 107 mg/dL (65-99); SODIUM 143 mmol/L (136-145); TOTAL PROTEIN 6.5 g/dL (6.4-8.2); eGFR BLACK RACES > 60 (>60); eGFR NON BLACK RACES > 60 (>60)
[2017-04-26 05:38] VITALS: BP 142/75
== END 2017-04-26 06:10 | disposition short-term general hospital (02) | DRG 417 ==
LOC: SURG1 07:32 → ICU 11:09
PROVIDERS: ADMIT Student in an Organized Health Care Education/Training Program; ATTEND Internal Medicine
PROC: 0FT44ZZ Resection of Gallbladder, Percutaneous Endoscopic Approach (ICD-10-PCS; principal; 2017-04-21 08:30)
PROC: 0BH17EZ Insertion of Endotracheal Airway into Trachea, Via Natural or Artificial Opening (ICD-10-PCS; 2017-04-23)
PROC: 5A1935Z Respiratory Ventilation, Less than 24 Consecutive Hours (ICD-10-PCS; 2017-04-23)
DX: K81.0 Acute cholecystitis (principal); J96.00 Acute respiratory failure, unspecified whether with hypoxia or hypercapnia; R09.02 Hypoxemia; G47.33 Obstructive sleep apnea (adult) (pediatric); K57.30 Diverticulosis of large intestine without perforation or abscess without bleeding; I10 Essential (primary) hypertension; E78.2 Mixed hyperlipidemia
CPT/HCPCS: 36415; 36600; 70450; 71010; 74176; 80053; 81001; 82140; 82550; 82553; 82803; 84484; 85025; 87040; 87070; 87077; 87186; 87205; 93005; 93010; 94002; 94003; 94660; 95811; 99231; A4216; A4222; A4618; A7030; C9113; S0020; S0028; J0330; J0360; J0690; J1170; J1644; J1956; J2001; J2060; J2250; J2270; J2310; J2405; J2543; J2710; J3010; J3490; J7620; J7626

== ENCOUNTER → 2017-12-02 | Outpatient (CLI) | payer OTHER, MEDICAID ==
[~2017-12-02] MED LIST changes: -ANCEF VIAL 1 GM ONE; -NS 1000 ML 1,000 ML ONE
--- NOTE | 2017-12-02 13:39 | CT ---
History: Periumbilical pain Study: CT abdomen and pelvis with contrast Findings: [address] imaging is performed from above the diaphragms to below the pubic symphysis following the oral ingestion of dilute contrast and during the intravenous administration of 100 mL of Omnipaque 350. Coronal and sagittal reformatted images are submitted as well and comparison made t o a previous study of 04/25/2017. Lung bases are now clear with only a tiny left pleural effusion anushka dent. The liver and spleen are normal in size and enhance uniformly. The pancreas and adrenal glands appear unremarkable. The gallbladder is surgically absent as before. An exophytic left midpole renal cyst measuring 2.1 cm is identified. There is a midpole right renal cyst measuring about 2.7 cm. No s olid renal mass or hydronephrosis is seen. Incidental note is made of a retro aortic course of the le ft renal vein. There are innumerable diverticuli within the descending and sigmoid colon. The appendi x appears unremarkable. Degenerative disc disease at the L5-S1 level is demonstrated. Impression: Previous cholecystectomy. Bilateral renal cysts. Diverticulosis of the colon without evidence of diverticulitis. Reported By:
== END | disposition home or self-care (01) | DRG 392 ==
LOC: RAD 08:24
PROVIDERS: ATTEND Internal Medicine
DX: R10.33 Periumbilical pain (principal); N28.1 Cyst of kidney, acquired; K57.90 Diverticulosis of intestine, part unspecified, without perforation or abscess without bleeding
CPT/HCPCS: 74177; A4222

== ENCOUNTER 2018-02-12 19:50 | Inpatient (IN) ==
[2018-02-12 20:00] VITALS: BMI 40.7
[2018-02-12] MEDS ORDERED: NORMODYNE INJ 100 MG VIAL IVP ONE ×3 (20:28→21:34)
[2018-02-12] MEDS ORDERED: NORMODYNE INJ 100 MG VIAL ONE ×2 (20:29→23:03)
--- NOTE | 2018-02-12 20:58 | DR.GENAD ---
HPI - PCP Primary Care Physician: MIGUEL ANGEL HOGAN - Complaint/Symptoms Chief Complaint Doctors Comments: Family members states that the patients blood pressure had not been under control for greater than one week. His systolic is consistently greater than 200. He received three dosed of labetalol 20mg per dose and he would rebound to greater hand 200mg/dl. Chief Complaint:: ELEVATED BLOOD PRESSURE EVEN AFTER TAKING BLOOD PRESSURE MEDICATION, FAMILY KEEPPING BLOOD PRESSURE LOG AT HOME. Self Treatment fo Chief Complaint: OTC MIGRANE MEDICATION- FROM [place] - Source History Provided: Patient - Mode of Arrival Mode of Arrival: Ambulatory - Timing Onset of Chief Complaint: 02/12/18 PMH - PMH Past Medical History: Yes Past Medical History: Hypertension Past Surgical History: Yes Surgical History: Cholecystectomy, Other - Family History History of Family Medical Conditions: Yes Family Medical History: Diabetes Mellitus, Hypertension - Social History Does patient currently use any type of tobacco product: No Have you used tobacco products in the last 12 months: No Type of Tobacco Use: None Does any household member use tobacco: No Alcohol Use: None Do you use any recreational Drugs:: No Lives With: Family Lives Where: Home - infectious screening In the last 2 months have you had wt loss of >10#?: NO Have you had fever, night sweats or hemotysis?: No Have you traveled outside the country in the last 6 months?: Yes Details about traveling: [place] 01/31/18 Isolation: Standard ROS - Review of Systems Eyes: No Symptoms Reported ENTM: No Symptoms Reported Respiratoy: No Symptoms Reported Cardiovascular: No Symptoms Reported Gastrointestinal/Abdominal: No Symptoms Reported Genitourinary: No Symptoms Reported Neurological: No Symptoms Reported Musculoskeletal: No Symptoms Reported Integumentary: No Symptoms Reported Hematologic/Lymphatic: No Symptoms Reported Endocrine: No Symptoms Reported Psychiatric: No Symptoms Reported All Other Systems: Reviewed and Negative PE - General General Appearance: Alert, In No Apparent Distress - Head Head Exam: Normal Inspection, Atraumatic - Eyes Eye exam: Normal Appearance, PERRL, EOMI - ENT ENT Exam: Normal Exam External Ear Exam: Normal External Inspection TM/Canal Exam: Bilateral Normal Nose Exam: Normal Nose Exam Mouth Exam: Normal Inspection Throat Exam: Normal Inspection - Neck Neck Exam: Normal Inspection, Full ROM - Chest Chest Inspection: Normal Inspection - Respiratory Respiratory Exam: Normal Lung Sounds Bilat Respiratory Exam: Bilateral Clear to Auscultation - Cardiovascular Cardiovascular Exam: Regular Rate, Normal Rhythm - Abdominal Exam Abdominal Exam: Normal Inspection, Normal Bowel Sounds Abdominal Tenderness: negative: RUQ, RLQ, LUQ, LLQ, Epigastrium, Suprapubic, Diffuse, Mild, Moderate, Severe, Other - Extremities Extremities Exam: Normal Inspection, Full ROM - Back Back Exam: Normal Inspection, Full ROM - Neurologic Neurological Exam: Alert, Oriented X3, CN II-XII Intact - Psychiatric Psychiatric Exam: Normal Affect, Normal Mood - Skin Skin Exam: Warm, Dry, Intact - Vital Signs Vitals: Temperature 97.9 F Pulse Rate [Left] 53 Pulse Rate 59 Respiratory Rate 18 Blood Pressure [Left Arm] 204/95 Blood Pressure [Right Arm] 142/75 Blood Pressure 232/99 O2 Sat by Pulse Oximetry 97 Course - Consultation Called: 10:00 (Dr Rao agreed to admit for further treatment) - Diagnosis Discharge Problem: Hypertensive urgency - Discharge Plan Disposition: ADMITTED INPATIENT Condition: Stable - Follow ups/Referrals Follow ups/Referrals: Graeme Hogan [Primary Care Provider] - 3 days - Instructions
[2018-02-12] MEDS ORDERED: NS 250 ML IV 250 ML IV ONE (22:56)
[2018-02-12 23:06] LABS: BASOPHILS # (AUTO) 0.1 X10^3/uL (0.0-0.1); EOSINOPHILS # (AUTO) 0.2 x10^3/uL (0.0-0.2); EOSINOPHILS % (AUTO) 2.9 % (0.9-2.9); HEMATOCRIT 41.5 % (42.0-54.0); HEMOGLOBIN 14.4 g/dL (13.5-18.0); LYMPHOCYTES # (AUTO) 1.9 X10^3/uL (1.3-2.9); MEAN CORPUSCULAR HEMOGLOBIN 29.3 pg (27.0-34.0); MEAN CORPUSCULAR HGB CONC 34.7 g/dL (33.0-35.0); MEAN CORPUSCULAR VOLUME 84.5 fL (80.0-100.0); MEAN PLATELET VOLUME 9.5 fL (7.4-11.0); MONOCYTES # (AUTO) 0.8 x10^3/uL (0.3-0.8); MONOCYTES % (AUTO) 10.8 % (0.0-13.0); NEUTROPHILS # (AUTO) 4.8 x10^3/uL (2.2-4.8); NEUTROPHILS % (AUTO) 61.3 % (42.0-75.0); PLATELET COUNT 190 X10^3/uL (150.0-450.0); RED BLOOD COUNT 4.91 X10^6/uL (4.7-6.0); RED CELL DISTRIBUTION WIDTH 14.2 % (11.6-16.5); WHITE BLOOD COUNT 7.8 X10^3/uL (3.6-10.0)
[2018-02-12 23:15] LABS: ALANINE AMINOTRANSFERASE 137 Units/L (12-78); ALBUMIN 3.6 g/dL (3.4-5.0); ALKALINE PHOSPHATASE 113 Units/L (46-116); ASPARTATE AMINO TRANSFERASE 123 Units/L (15-37); BLOOD UREA NITROGEN 11 mg/dL (7-18); CALCIUM 8.6 mg/dL (8.5-10.1); CHLORIDE 102 mmol/L (98-107); CREATININE 1.09 mg/dL (0.70-1.30); SODIUM 138 mmol/L (136-145); eGFR NON BLACK RACES > 60 (>60)
[2018-02-12] MEDS: D5 NS 1000 ML 1,000 ML IV SCH (23:23)
[2018-02-12] MEDS: NORMODYNE INJ 100 MG VIAL 250 MG in NS 250 ML IV 200 ML IV PRN (23:41)
--- NOTE | 2018-02-13 00:23 | RAD ---
Chest single view Indication: Shortness of breath Comparison 04/25/2017 Findings: The heart and mediastinum are normal. Lungs are well expanded and clear. The skeletal struc tures are negative. Impression: Negative exam for active pathology of the chest Reported By:
[2018-02-13] MEDS: MAGNESIUM SULFATE 1 GRAM/100 mL PREMIX 1 GM/100 ML BAG IV PRN ×2 (03:10→04:30)
[2018-02-13] MEDS: NORMODYNE INJ 100 MG VIAL 250 MG in NS 250 ML IV 200 ML IV PRN (06:18)
[2018-02-13] MEDS ORDERED: NORCO 5/325 MG TAB PO PRN (07:26)
[2018-02-13] MEDS: LASIX PO SCH (10:05)
[2018-02-13] MEDS: COLCRYS TAB 0.6 MG PO SCH ×2 (10:05→21:30)
[2018-02-13] MEDS: COREG TAB 25 MG PO SCH ×2 (10:05→21:31)
[2018-02-13] MEDS ORDERED: BENTYL CAP 10 MG PO ONE (10:10)
[2018-02-13] MEDS: BENTYL CAP 10 MG PO SCH ×2 (10:14→14:03)
[2018-02-13] MEDS: PROTONIX TAB 40 MG PO SCH (14:07)
[2018-02-13] MEDS: PriLOSEC PO SCH ×2 (14:07→21:32)
[2018-02-13 15:46] LABS: STOOL FOR WBC NEGATIVE (NEGATIVE)
[2018-02-13 16:12] LABS: CRYPTOSPORIDIUM PARVUM ANTIGEN NEGATIVE (NEGATIVE); GIARDIA LAMBLIA ANTIGEN NEGATIVE (NEGATIVE)
[2018-02-13] MEDS ORDERED: FLOMAX PO SCH (21:00)
[2018-02-13] MEDS ORDERED: TRICOR TAB 48 MG PO SCH (21:00)
[2018-02-13] MEDS ORDERED: KLONOPIN TAB 0.5 MG PO SCH (21:00)
[2018-02-13] MEDS ORDERED: NORVASC TAB 10 MG PO SCH (21:00)
[2018-02-13] MEDS ORDERED: PATIENT'S HOME MEDICATION (Fenofibrate [Fenofibrate] 1 TAB) PO SCH (21:00)
[2018-02-13] MEDS: D5 NS 1000 ML 1,000 ML IV SCH (22:05)
[2018-02-14 06:23] LABS: BASOPHILS % (AUTO) 0.8 % (0.2-1.0); EOSINOPHILS # (AUTO) 0.2 x10^3/uL (0.0-0.2); EOSINOPHILS % (AUTO) 3.3 % (0.9-2.9); HEMOGLOBIN 13.9 g/dL (13.5-18.0); LYMPHOCYTES # (AUTO) 1.3 X10^3/uL (1.3-2.9); LYMPHOCYTES % (AUTO) 23.5 % (21.0-51.0); MEAN CORPUSCULAR HEMOGLOBIN 29.6 pg (27.0-34.0); MEAN CORPUSCULAR HGB CONC 34.9 g/dL (33.0-35.0); MEAN CORPUSCULAR VOLUME 84.9 fL (80.0-100.0); MEAN PLATELET VOLUME 9.3 fL (7.4-11.0); MONOCYTES # (AUTO) 0.7 x10^3/uL (0.3-0.8); MONOCYTES % (AUTO) 11.9 % (0.0-13.0); NEUTROPHILS # (AUTO) 3.4 x10^3/uL (2.2-4.8); NEUTROPHILS % (AUTO) 60.5 % (42.0-75.0); PLATELET COUNT 165 X10^3/uL (150.0-450.0); RED BLOOD COUNT 4.71 X10^6/uL (4.7-6.0); RED CELL DISTRIBUTION WIDTH 14.4 % (11.6-16.5); WHITE BLOOD COUNT 5.6 X10^3/uL (3.6-10.0)
[2018-02-14 07:05] LABS: ALANINE AMINOTRANSFERASE 128 Units/L (12-78); ALBUMIN 3.1 g/dL (3.4-5.0); ALKALINE PHOSPHATASE 127 Units/L (46-116); ASPARTATE AMINO TRANSFERASE 113 Units/L (15-37); BLOOD UREA NITROGEN 7 mg/dL (7-18); CALCIUM 8.2 mg/dL (8.5-10.1); CHLORIDE 105 mmol/L (98-107); COR CA(FOR HYPOALB) 8.9 mg/dL (8.5-10.1); CREATININE 1.06 mg/dL (0.70-1.30); SODIUM 142 mmol/L (136-145); TOTAL PROTEIN 6.4 g/dL (6.4-8.2); eGFR NON BLACK RACES > 60 (>60)
[2018-02-14 07:12] LABS: MAGNESIUM 1.4 mg/dL (1.7-2.9)
--- NOTE | 2018-02-14 09:37 | DR.H&P ---
H&P - History & Physical for Day of: H&P Date: 02/12/18 - Chief Complaint Chief Complaint: HYPERTENSION - History of Present Illness History of Present Illness: IS A 68 YEAR OLD PATIENT OF OURS WHO PRESENTED TO THE HOSPITAL FOR COMPLAINTS OF ELEVATED BLOOD PRESSURE. THEY REPORT THAT HIS BLOOD PRESSURE HAS BEEN UNCONTROLLED FOR OVER A WEEK, WITH SYSTOLIC GREATER THAN 200. ON ARRIVAL, VITALS WERE 97.9-59-18-94%-232/99. LABS WERE OBTAINED. ABNORMAL LAB VALUES INCLUDE THE FOLLOWING: HCT 41.5, AST 123, ALT 137, MAGNESIUM 1.6. CHEST XRAY WAS NEGATIVE FOR ACTIVE PATHOLOGY OF THE CHEST. EKG REVEALS SINUS BRADYCARDIA WITH HR 49. HE WAS GIVEN LABETALOL 20MG X 3 DOSES, BUT BLOOD PRESSURE CONTINUED TO REBOUNT TO GREATER THAN 200MG/DL. PATIENT ADMITTED TO THE INTENSIVE CARE UNIT FOR FURTHER EVALUATION AND TREATMENT. HE WAS STARTED ON THE LABETALOL PROTOCOL AND MAGNESIUM PROTOCOL FOR REPLACEMENT. WE PLAN TO FOLLOW UP WITH AM LABS AND CONTINUE TO MONITOR PATIENT. - Past Medical History Past Medical History: Hypertension - Past Surgical History Surgical History: Cholecystectomy, Other - Family History Family Medical History: Hypertension - Social History Does patient currently use any type of tobacco product: No Have you used tobacco products in the last 12 months: No Type of Tobacco Use: None Does any household member use tobacco: No Alcohol Use: None Drug Use: None - Medications Home Medications: No Known Drug Allergies Allergy (Verified 04/22/17 11:08) CONTINUE taking the following medications RX: amlodipine 1 tab PO HS 02/13/18 [History] RX: carvedilol 1 tab PO BID 02/13/18 [History] RX: ciprofloxacin HCl 1 tab PO BID 02/13/18 [History] RX: clonazepam 1 tab PO HS 02/13/18 [History] RX: colchicine 1 tab PO BID 02/13/18 [History] RX: dicyclomine 1 tab PO DAILY 02/13/18 [History] RX: dicyclomine 1 tab PO QID PRN 02/13/18 [History] RX: fenofibrate 1 tab PO HS 02/13/18 [History] RX: furosemide 1 tab PO DAILY 02/13/18 [History] RX: meloxicam 1 tab PO DAILY 02/13/18 [History] RX: tamsulosin 1 tab PO HS 02/13/18 [History] New Prescriptions RX: losartan 25 mg PO DAILY #30 tab 02/14/18 [Rx] RX: magnesium oxide 400 mg PO BID #60 tab 02/14/18 [Rx] famotidine [Pepcid] 40 mg PO BID #60 tab 02/14/18 [Rx] pantoprazole [Protonix] 40 mg PO BID #60 tab 02/14/18 [Rx] - Review of Systems Constitutional: No Symptoms Reported Eyes: No Symptoms Reported ENT: No Symptoms Reported Respiratory: Shortness of Breath Cardiovascular: No Symptoms Reported Gastrointestinal: Diarrhea Genitourinary: No Symptoms Reported Musculoskeletal: No Symptoms Reported Skin: No Symptoms Reported Neurological: Weakness - Physical Exam Vital Signs: Temperature 98.1 F Pulse Rate [Apical] 63 Pulse Rate [Left] 48 Pulse Rate 59 Respiratory Rate 20 Blood Pressure [Left Arm] 136/68 Blood Pressure [Right Arm] 142/75 Blood Pressure 232/99 O2 Sat by Pulse Oximetry 95 Oriented: Normal Eyes: Normal Ear: Normal Nose: Normal Throat: Normal Respiratory: Clear Throughout Cardiovascular: Normal. 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
[2018-02-14] MEDS: BENTYL CAP 10 MG PO SCH (09:41)
[2018-02-14] MEDS: COREG TAB 25 MG PO SCH (09:41)
[2018-02-14] MEDS: COLCRYS TAB 0.6 MG PO SCH (09:41)
[2018-02-14] MEDS: PROTONIX TAB 40 MG PO SCH (09:42)
[2018-02-14] MEDS: LASIX PO SCH (09:42)
[2018-02-14] MEDS: PriLOSEC PO SCH (09:42)
[2018-02-14 10:52] VITALS: BP 141/74
--- NOTE | 2018-02-14 18:17 | PCM.PROG ---
Progress Note - Progress Note for Day of Date: 02/13/18 - Subjective Subjective: WAS ADMITTED FOR HYPERTENSIVE CRISIS. TODAY, HE IS ALERT AND ORIENTED, LYING IN BED ON MORNING ROUNDS. HE REPORTS DIARRHEA. ON EXAMINATION, HEART IS REGULAR IN RATE AND RHYTHM. BILATERAL LUNGS ARE CLEAR TO AUSCULTATION. ABDOMEN IS ROUND, SOFT, AND NOTED WITH MILD, DIFFUSE TENDERNESS TO PALPATION. HYPERACTIVE BOWEL SOUNDS ARE NOTED IN ALL QUADRANTS. HIS VITALS THIS MORNING ARE 97.6-57-25-97%-181/81. HE CONTINUES ON THE LABETALOL PROTOCOL. TODAY, WE WILL RESUME HIS HOME MEDICATIONS AND ORDER STOOL STUDIES. OTHERWISE, WE WILL CONTINUE TO MONITOR NIBP, FOLLOW UP WITH AM LABS, AND CONTINUE TO MONITOR PATIENT. - Past Medical Family Social History Past Med/Fam/Surg Hx: No changes since H&P Allergies: Allergies No Known Drug Allergies Allergy (Verified 04/22/17 11:08) - Review of Systems ROS: No change since H&P - Vital Signs and I&O's Vital Signs: Temperature 98.1 F Pulse Rate [Apical] 68 Pulse Rate [Left] 48 Pulse Rate 59 Respiratory Rate 20 Blood Pressure [Left Arm] 141/74 Blood Pressure [Right Arm] 142/75 Blood Pressure 232/99 O2 Sat by Pulse Oximetry 96 Intake and Output: Intake & Output 02/12/18 02/13/18 02/14/18 02/15/18 11:59 11:59 11:59 11:59 Intake Total 820 / 820 1415 / 1415 Output Total 400 / 400 Balance 820 / 820 1015 / 1015 - Physical Exam Oriented: Normal Eyes: Normal Ear: Normal Nose: Normal Throat: Normal Respiratory: Normal Cardiovascular: Normal. negative: S3, S4, Murmur, Edema : Normal Auscultation: Bowel Sounds: Normal Palpation: Normal Tenderness: Normal Skin: Normal Musculoskeletal: Normal Psychiatric: Normal Mood Description: Calm Affect: Normal Speech Pattern: Clear - Laboratory and Diagnostics Result Diagrams: 02/14/18 05:32 02/14/18 05:32 Labs: 02/13/18 15:16 Stool Stool Culture - Preliminary 02/13/18 15:16 Stool - Final Laboratory WBC 5.6 X10^3/uL (3.6-10.0) 02/14/18 05:32 RBC 4.71 X10^6/uL (4.7-6.0) 02/14/18 05:32 Hgb 13.9 g/dL (13.5-18.0) 02/14/18 05:32 Hct 40.0 % (42.0-54.0) L 02/14/18 05:32 MCV 84.9 fL (80.0-100.0) 02/14/18 05:32 MCH 29.6 pg (27.0-34.0) 02/14/18 05:32 MCHC 34.9 g/dL (33.0-35.0) 02/14/18 05:32 RDW 14.4 % (11.6-16.5) 02/14/18 05:32 Plt Count 165 X10^3/uL (150.0-450.0) 02/14/18 05:32 MPV 9.3 fL (7.4-11.0) 02/14/18 05:32 Neut % (Auto) 60.5 % (42.0-75.0) 02/14/18 05:32 Lymph % (Auto) 23.5 % (21.0-51.0) 02/14/18 05:32 Dixon % (Auto) 11.9 % (0.0-13.0) 02/14/18 05:32 Eos % (Auto) 3.3 % (0.9-2.9) H 02/14/18 05:32 Baso % (Auto) 0.8 % (0.2-1.0) 02/14/18 05:32 Neut # (Auto) 3.4 x10^3/uL (2.2-4.8) 02/14/18 05:32 Lymph # (Auto) 1.3 X10^3/uL (1.3-2.9) 02/14/18 05:32 Dixon # (Auto) 0.7 x10^3/uL (0.3-0.8) 02/14/18 05:32 Eos # (Auto) 0.2 x10^3/uL (0.0-0.2) 02/14/18 05:32 Baso # (Auto) 0.0 X10^3/uL (0.0-0.1) 02/14/18 05:32 Absolute Nucleated RBC 0.1 /100WBC 02/14/18 05:32 INR Target Range - 02/12/18 22:38 INR 1.04 (0.8-1.3) 02/12/18 22:38 APTT 31.2 SECONDS (22.9-36.5) 02/12/18 22:38 PTT Comment - 02/12/18 22:38 Sodium 142 mmol/L (136-145) 02/14/18 05:32 Corrected Sodium TNP 02/14/18 05:32 Potassium 3.6 mmol/L (3.5-5.1) 02/14/18 05:32 Chloride 105 mmol/L (98-107) 02/14/18 05:32 Carbon Dioxide 28.0 mmol/L (21-32) 02/14/18 05:32 BUN 7 mg/dL (7-18) 02/14/18 05:32 Creatinine 1.06 mg/dL (0.70-1.30) 02/14/18 05:32 Est GFR (MDRD) Af Amer > 60 (>60) 02/14/18 05:32 Est GFR (MDRD) Non-Af > 60 (>60) 02/14/18 05:32 Glucose 107 mg/dL (65-99) H 02/14/18 05:32 Calcium 8.2 mg/dL (8.5-10.1) L 02/14/18 05:32 Corrected Calcium 8.9 mg/dL (8.5-10.1) 02/14/18 05:32 Magnesium 1.4 mg/dL (1.7-2.9) L 02/14/18 05:32 Total Bilirubin 0.40 mg/dL (0.2-1.0) 02/14/18 05:32 AST 113 Units/L (15-37) H 02/14/18 05:32 ALT 128 Units/L (12-78) H 02/14/18 05:32 Alkaline Phosphatase 127 Units/L (46-116) H 02/14/18 05:32 Total Protein 6.4 g/dL (6.4-8.2) 02/14/18 05:32 Albumin 3.1 g/dL (3.4-5.0) L 02/14/18 05:32 Globulin 3.3 g/dL (2.5-4.5) 02/14/18 05:32 Albumin/Globulin Ratio 0.9 Ratio (1.1-2.1) L 02/14/18 05:32 Stool Description 40g,soft,brn,formed 02/13/18 15:16 Stl Occult Blood (IFOB) Negative (NEGATIVE) 02/13/18 15:16 Stool for White Cells Negative (NEGATIVE) 02/13/18 15:16 Stl C. diff Tox B Gene Negative (NEGATIVE) 02/13/18 15:16 Stl C. 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
--- NOTE | 2018-03-11 00:23 | DR.CARTERD ---
- Discharge Summary for: Discharge Summary for Date of:: 02/14/18 - Admission Date Date of Admission: 02/12/18 - Admission Diagnoses Admission Diagnosis: (1) Hypertensive urgency - Discharge Date Discharge Date: 02/14/18 - Discharge Diagnoses Discharge Diagnosis: (1) Hypertensive urgency (2) Diarrhea - Hospital Course Hospital Course: DAY ONE, MR. ROMO IS A 68 YEAR OLD PATIENT OF OURS WHO PRESENTED TO THE HOSPITAL FOR COMPLAINTS OF ELEVATED BLOOD PRESSURE. FAMILY REPORTED THAT HIS BLOOD PRESSURE HAD BEEN UNCONTROLLED FOR OVER A WEEK, WITH SYSTOLIC GREATER THAN 200. ON ARRIVAL, VITALS WERE 97.9-59-18-94%-232/99. LABS WERE OBTAINED. ABNORMAL LAB VALUES INCLUDED THE FOLLOWING: HCT 41.5, AST 123, ALT 137, MAGNESIUM 1.6. CHEST XRAY WAS NEGATIVE FOR ACTIVE PATHOLOGY OF THE CHEST. EKG REVEALED SINUS BRADYCARDIA WITH HR 49. HE WAS GIVEN LABETALOL 20MG X 3 DOSES, BUT BLOOD PRESSURE CONTINUED TO REBOUND TO GREATER THAN 200MG/DL. PATIENT ADMITTED TO THE INTENSIVE CARE UNIT FOR FURTHER EVALUATION AND TREATMENT. HE WAS STARTED ON THE LABETALOL PROTOCOL AND MAGNESIUM PROTOCOL FOR REPLACEMENT. DAY TWO, PATIENT WAS ALERT AND ORIENTED, LYING IN BED ON MORNING ROUNDS. HE REPORTED DIARRHEA. ON EXAMINATION, HEART WAS REGULAR IN RATE AND RHYTHM. BILATERAL LUNGS WERE CLEAR TO AUSCULTATION. ABDOMEN WAS ROUND, SOFT, AND NOTED WITH MILD, DIFFUSE TENDERNESS TO PALPATION. HYPERACTIVE BOWEL SOUNDS WERE NOTED IN ALL QUADRANTS. HIS VITALS WERE 97.6-57-25-97%-181/81. HE CONTINUED ON THE LABETALOL PROTOCOL. WE RESUMED HIS HOME MEDICATIONS AND ORDERED STOOL STUDIES. STOOL STUDIES WERE NEGATIVE. BLOOD PRESSURE WAS 150/83 AND PATIENT WAS WEANED FROM LABETALOL DRIP. ON DAY THREE, PATIENT REPORTED HE WAS FEELING BETTER. BLOOD PRESSURE WAS 136/68. FINAL STOOL CULTURE WAS NEGATIVE FOR GROWTH. WE PLANNED FOR DISCHARGE. INSTRUCTIONS FOR MEDICATIONS AND FOLLOW UP WERE DISCUSSED WITH PATIENT AND FAMILY, BOTH VOICED UNDERSTANDING. PATIENT DISCHARGED HOME IN STABLE CONDITION WITH FAMILY. - Discharge Medications Discharge Medications: Home Medication List amlodipine 1 tab PO HS 02/13/18 [History] carvedilol 1 tab PO BID 02/13/18 [History] ciprofloxacin HCl 1 tab PO BID 02/13/18 [History] clonazepam 1 tab PO HS 02/13/18 [History] colchicine 1 tab PO BID 02/13/18 [History] dicyclomine 1 tab PO DAILY 02/13/18 [History] dicyclomine 1 tab PO QID PRN 02/13/18 [History] fenofibrate 1 tab PO HS 02/13/18 [History] furosemide 1 tab PO DAILY 02/13/18 [History] meloxicam 1 tab PO DAILY 02/13/18 [History] tamsulosin 1 tab PO HS 02/13/18 [History] famotidine [Pepcid] 40 mg PO BID #60 tab 02/14/18 [Rx] losartan 25 mg PO DAILY #30 tab 02/14/18 [Rx] magnesium oxide 400 mg PO BID #60 tab 02/14/18 [Rx] pantoprazole [Protonix] 40 mg PO BID #60 tab 02/14/18 [Rx] Prescriptions: famotidine [Pepcid] Graeme Pham losartan Graeme Pham magnesium oxide Graeme Pham pantoprazole [Protonix] Graeme Pham - Discharge Disposition Discharge Disposition: PATIENT IS TO FOLLOW UP IN OUR OFFICE IN ONE WEEK AND WITH DR. BLACK IN ONE WEEK.
== END 2018-02-14 12:05 | disposition home or self-care (01) | DRG 305 ==
LOC: ER 19:50 → ICU 23:32
PROVIDERS: ADMIT Internal Medicine; ATTEND Internal Medicine
DX: I10 Essential (primary) hypertension; Z79.899 Other long term (current) drug therapy; R19.7 Diarrhea, unspecified; R94.31 Abnormal electrocardiogram [ECG] [EKG]; R00.1 Bradycardia, unspecified; I16.0 Hypertensive urgency; R06.02 Shortness of breath
CPT/HCPCS: 36415; 71010; 71045; 80053; 82270; 83630; 83735; 85025; 85610; 85730; 87045; 87328; 87329; 87427; 87449; 87493; 87899; 93005; 93010; 96365; 96374; 96375; 99284; 99285; A4222; J3475; J3490; J7042; J7050